=== PATIENT | female | born 1950 | race Caucasian/White ===

== ENCOUNTER 2019-01-05 07:15 | Inpatient (IN) | payer MEDICARE ==
[~2019-01-05 07:15] MED LIST: cefOXitin 2 GM Vial ONE
[2019-01-05] MEDS ORDERED: Rocuronium 50 MG/5 ML Vial ONE ×2 (09:02→11:34)
[2019-01-05] MEDS ORDERED: fentaNYL 250 MCG/5 ML SDV ONE ×2 (09:02→11:34)
[2019-01-05] MEDS ORDERED: Neostigmine Methylsulfate 1 MG/ML 5 ML Syringe ONE (09:02)
[2019-01-05] MEDS ORDERED: Propofol 200 MG/20 ML SDV ONE (09:02)
[2019-01-05] MEDS ORDERED: Ondansetron 4 MG/2 ML SDV ONE (09:02)
[2019-01-05] MEDS ORDERED: Succinylcholine 200 MG/10 ML MDV ONE (09:02)
[2019-01-05] MEDS ORDERED: Glycopyrrolate 0.2 MG/ML 5 ML MDV ONE (09:02)
[2019-01-05] MEDS ORDERED: Dexamethasone 4 MG/ML SDV ONE (09:02)
[2019-01-05] MEDS ORDERED: Lactated Ringers 1,000 ML ONE (09:05)
[2019-01-05] MEDS ORDERED: Gabapentin 300 MG Cap PO ONE (09:30)
[2019-01-05] MEDS ORDERED: Scopolamine 1.5 MG Transdermal Patch TRDERM SCH (09:30)
[2019-01-05] MEDS ORDERED: Acetaminophen 500 MG Tab PO ONE (09:30)
[2019-01-05] MEDS ORDERED: Celecoxib 200 MG Cap PO ONE (09:30)
[2019-01-05] MEDS ORDERED: Dextrose 5%-Lactated Ringers 1,000 ML IV SCH ×2 (10:00→15:45)
[2019-01-05] MEDS ORDERED: cefOXitin 2 GM in Sodium Chloride 0.9% 50 ML IV ONE (11:00)
[2019-01-05] MEDS ORDERED: Lidocaine 2% 100 MG/5 ML Syringe IVPUSH SCH (11:15)
[2019-01-05] MEDS ORDERED: Ketamine 50 MG in Sodium Chloride 0.9% 49.5 ML IV SCH (11:15)
[2019-01-05] MEDS ORDERED: Ketamine 500 MG/5 ML MDV IV SCH (11:15)
[2019-01-05] MEDS ORDERED: Meropenem 500 MG SDV ONE (13:12)
[2019-01-05] MEDS ORDERED: hydrOXYzine HCl 100 MG/2 ML SDV IM ONE (13:59)
[2019-01-05] MEDS ORDERED: HYDROmorphone 0.5 MG/0.5 ML Syringe IVPUSH PRN (14:40)
[2019-01-05] MEDS: Lidocaine 0.4%/D5W 2 GM/500 ML BAG IV SCH (14:52)
[2019-01-05] MEDS: HYDROmorphone 1 MG/ML Syringe IV PRN ×2 (14:52→19:31)
[2019-01-05] MEDS ORDERED: Metoclopramide 10 MG/2 ML SDV IVPUSH PRN (15:44)
[2019-01-05] MEDS ORDERED: Labetalol 20 MG/4 ML Syringe IVPUSH PRN (15:44)
[2019-01-05] MEDS ORDERED: Albuterol/Ipratropium 3.0-0.5 MG/3 ML Neb Soln INH PRN (15:44)
[2019-01-05] MEDS ORDERED: hydrOXYzine HCl 100 MG/2 ML SDV IM PRN (15:44)
[2019-01-05] MEDS ORDERED: diphenhydrAMINE 50 MG/ML SDV IVPUSH PRN (15:44)
[2019-01-05] MEDS ORDERED: 50% Dextrose in Water 50 ML Syringe IVPUSH PRN (15:44)
[2019-01-05] MEDS ORDERED: Glucagon,Human Recombinant 1 MG Vial IM PRN (15:44)
[2019-01-05] MEDS ORDERED: Insulin Lispro 100 Unit/ML 3 ML KwikPen SUBCUT PRN (15:44)
[2019-01-05] MEDS ORDERED: Ondansetron 4 MG/2 ML SDV IVPUSH PRN (15:44)
[2019-01-05] MEDS: Dextrose 5%-Lactated Ringers 1,000 ML IV SCH (16:05)
[2019-01-05] MEDS: Lactated Ringers 1,000 ML IV SCH (16:06)
[2019-01-05] MEDS: cefOXitin 2 GM in Sodium Chloride 0.9% 50 ML IV SCH ×2 (16:45→22:06)
[2019-01-05] MEDS: Acetaminophen Soln 650 MG/20.3 ML UD Cup PO SCH ×2 (16:45→22:06)
[2019-01-05] MEDS: MVI, Adult with Vitamin K 10 ML, Thiamine 200 MG, Chromium/Copper/Mang/Selen/Zn 1 ML in... IV SCH ×4 (16:45)
[2019-01-05] MEDS: Diltiazem IR 30 MG Tab PO SCH ×2 (16:45→22:05)
[2019-01-05] MEDS: Pantoprazole 40 MG Vial IVPUSH SCH (16:46)
[2019-01-05] MEDS: Heparin Sodium 5,000 Units/ML Vial SUBCUT SCH (19:24)
[2019-01-05] MEDS: Gabapentin 250 MG/5 ML Solution ML 470 ML Bottle PO SCH (20:55)
[2019-01-05] MEDS ORDERED: Albuterol/Ipratropium 3.0-0.5 MG/3 ML Neb Soln INH SCH (21:00)
[2019-01-06] MEDS: HYDROmorphone 1 MG/ML Syringe IV PRN ×2 (00:23→04:14)
[2019-01-06] MEDS: Lactated Ringers 1,000 ML IV SCH ×2 (02:34→13:12)
[2019-01-06] MEDS ORDERED: Iopamidol 612 MG/ML 50 ML SDV PO ONE (03:50)
[2019-01-06] MEDS: Diltiazem IR 30 MG Tab PO SCH ×2 (04:13→09:41)
[2019-01-06] MEDS: cefOXitin 2 GM in Sodium Chloride 0.9% 50 ML IV SCH ×5 (05:27→22:26)
[2019-01-06] MEDS: Acetaminophen Soln 650 MG/20.3 ML UD Cup PO SCH ×5 (05:28→22:26)
[2019-01-06] MEDS: Dextrose 5%-Lactated Ringers 1,000 ML IV SCH (05:29)
--- NOTE | 2019-01-06 06:08 | CRLCR ---
Indication: Evaluate Noah-en-Y gastric bypass. Technique: Abdomen 3 view. 50 cc of Isovue-300 and oral contrast were administered. Comparison: None. Findings: Postoperative changes Noah-en-Y gastric bypass. Enteric contrast is seen within the gastric pouch and proximal Noah limb on the 1st two images which are immediately following contrast ingestion. The contrast is seen to pass into mid and distal loops of normal caliber small bowel in the left abdomen on the 3rd image which is at 17 minutes delayed. No evidence of contrast leak. Surgical drain left upper quadrant. Surgical zachary projected over the right lower abdomen. Impression: Postoperative changes Noah-en-Y gastric bypass. No evidence of contrast leak. Dictated by Cristine Martinez MD @ Jan 06 2019 6:02AM Signed by Dr. Cristine Martinez @ Jan 06 2019 6:06AM
[2019-01-06] MEDS ORDERED: Ondansetron 4 MG Tab.DIS PO PRN (07:49)
[2019-01-06] MEDS: Celecoxib 200 MG Cap PO SCH (07:53)
[2019-01-06] MEDS: Heparin Sodium 5,000 Units/ML Vial SUBCUT SCH ×2 (08:00→21:45)
[2019-01-06] MEDS ORDERED: metFORMIN 500 MG Tab PO SCH (08:00)
[2019-01-06] MEDS: Gabapentin 250 MG/5 ML Solution ML 470 ML Bottle PO SCH ×3 (08:59→21:45)
[2019-01-06] MEDS ORDERED: Lisinopril 10 MG Tab PO SCH (09:00)
[2019-01-06] MEDS: SCOPOLAMINE PATCH CHECK TOP SCH (09:01)
[2019-01-06] MEDS: HYDROmorphone 2 MG Tab PO PRN ×2 (09:32→17:01)
[2019-01-06] MEDS: Hydrochlorothiazide 12.5 MG Cap PO SCH (09:41)
--- NOTE | 2019-01-06 11:19 | PN ---
DATE OF SERVICE: 01/06/2019 SUBJECTIVE: Michelle is postop day #1. Her upper GI this morning was normal. She has been up ambulating. Pain has been controlled. REVIEW OF SYSTEMS: Remainder of review of systems negative for any pertinent positives and negatives. OBJECTIVE: GENERAL: Michelle Rodriguez is a 68-year-old female. VITAL SIGNS: TPR is 97.2, 71, 17, blood pressure 104/70. HEENT: Negative. NECK: Supple. HEART: Regular rate and rhythm. LUNGS: Clear. ABDOMEN: Dressing dry and intact. Abdominal binder is on. ANA LUISA drain is intact and is putting out a pink serosanguineous drainage. EXTREMITIES: Without peripheral edema. ASSESSMENT: 1. Diagnostic laparoscopy with laparoscopic sleeve gastrectomy. 2. Liver biopsy. 3. Limited laparotomy with strictureplasty of transverse colon. POSTOPERATIVE DIAGNOSES: 1. Morbid obesity. 2. Hepatomegaly. 3. Extensive intraabdominal adhesions with stricture at the transverse colon noted after takedown of adhesions. Date of surgery, 01/05/2019. Surgeon, Gaurav Ozuna MD. PLAN: 1. Discontinue D5LR. 2. Lactated Ringer's 100 mL per hour. 3. Step-2 gastric bypass diet without cereal. 4. Dressing off, may shower. 5. Lisinopril 10/12.5 mg p.o. daily. 6. Discontinue metformin. 7. Communication order, 3 med cups per hour and record at bedside. 8. Zofran 4 mg ODT q.4 hours p.r.n. nausea. 9. Good pulmonary toilet. 10.We will evaluate p.r.n. or in a.m. Cristine Dia PA-C /[id number]
--- NOTE | 2019-01-06 12:24 | PCM.CONS ---
H&P History of Present Illness - General Date of Service: 01/06/19 Admit Problem/Dx: Admission Diagnosis/Problem Admission Diagnosis/Problem Gastrectomy Source of Information: Patient, Provider, RN Notes Reviewed History Limitations: Reports: No Limitations - History of Present Illness Initial Comments - Free Text/Narative: Ms. Rodriguez is a 68-year-old woman who I been asked to see by Dr. Ozuna for further suggestions concerning evaluation and management of paroxysmal atrial fibrillation. She was admitted yesterday for bariatric surgery with gastric sleeve placement. During the postoperative period was noted to have episodes of increased heart rate. On telemetry monitoring it appears that she has paroxysmal episodes of atrial fibrillation. She was started on diltiazem 30 mg every 6 hours. Since then rates have been under better control but she continues to experience intermittent episodes of the atrial fibrillation. She denies any prior history of significant cardiac disease and was feeling well over the past week prior to surgery. Upper Abdomen Pain Score (Numeric/FACES): 4 - Related Data Allergies/Adverse Reactions: Allergies Allergy/AdvReac Type Severity Reaction Status Date / Time laundry soap Allergy Rash Uncoded 01/05/19 09:56 Home Medications: Home Meds Cholecalciferol (Vitamin D3) [Vitamin D] 5,000 units PO DAILY 01/01/19 [History] Cyanocobalamin (Vitamin B-12) [Vitamin B-12] 1,000 mcg PO DAILY 01/01/19 [ History] Hydrochlorothiazide/Lisinopril [Lisinopril/HCTZ 10-12.5 MG] 1 tab PO DAILY 01/01 [History] Multivitamin W/Iron, Minerals [Flintstones Complete] 1 tab PO DAILY 01/01/19 [ History] Vitamin B Complex [B Complex] 1 tab PO DAILY 01/01/19 [History] metFORMIN HCl [Metformin HCl ER] 500 mg PO DAILY 01/05/19 [History] Past Medical History HEENT History: Reports: Other (See Below) Other HEENT History: wears glasses Cardiovascular History: Reports: Hypertension Respiratory History: Reports: Sleep Apnea Gastrointestinal History: Reports: Chronic Constipation Genitourinary History: Reports: Renal Calculus, UTI, Recurrent, Other (See Below ) Other Genitourinary History: yeast infections [employer]ETING [employer]ICATION [employer]GER History: Reports: Musculoskeletal History: Reports: Other (See Below) Other Musculoskeletal History: chronic knee pain - "knocked knee" Endocrine/Metabolic History: Reports: Diabetes, Type II, Obesity/BMI 30+ Hematologic History: Reports: Other (See Below) Other Hematologic History: vitamin d deficiency - Infectious Disease History Infectious Disease History: Reports: Chicken Pox - Past Surgical History GI Surgical History: Reports: Appendectomy, Cholecystectomy Female Surgical History: Reports: Hysterectomy, Salpingo-Oophorectomy Social & Family History - Tobacco Use Smoking Status *Q: Former Smoker Used Tobacco, but Quit: Yes Month/Year Tobacco Last Used: 5 yrs ago - Caffeine Use Caffeine Use: Reports: Coffee - Recreational Drug Use Recreational Drug Use: No H&P Review of Systems - Review of Systems: Review Of Systems: See Below General: Reports: No Symptoms Pulmonary: Reports: No Symptoms Cardiovascular: Reports: No Symptoms Gastrointestinal: Reports: Abdominal Pain. Denies: Constipation, Diarrhea, Hematemesis, Hematochezia, Melena Musculoskeletal: Reports: No Symptoms Exam - Exam Exam: See Below - Vital Signs Vital Signs: Last Vital Signs Temp 97.3 F 01/06/19 09:37 Pulse 63 01/06/19 09:37 Resp 13 01/06/19 09:37 BP 108/57 L 01/06/19 09:37 Pulse Ox 95 01/06/19 09:37 Weight: 302 lb 9.6 oz - Exam Quality Assessment: DVT Prophylaxis General: Alert, Oriented, Cooperative, Mild Distress Neck: Supple, Trachea Midline, +2 Carotid Pulse wo Bruit Lungs: Clear to Auscultation, Normal Respiratory Effort Cardiovascular: Regular Rate, Regular Rhythm, Normal S1, Normal S2. No: Systolic Murmur, Diastolic Murmur GI/Abdominal Exam: Soft, No Organomegaly, Tender. No: Distended, Guarding, Rigid, Rebound Extremities: Non-Tender, No Pedal Edema - Patient Data Lab Results Last 24 hrs: Laboratory Results - last 24 hr 01/06/19 01/06/19 Range/Units 04:02 04:02 WBC 13.9 H (4.5-11.0) K/uL RBC 4.49 (3.30-5.50) M/uL Hgb 13.1 (12.0-15.0) g/dL Hct 40.8 (36.0-48.0) % MCV 91 (80-98) fL MCH 29 (27-31) pg MCHC 32 (32-36) % Plt Count 259 (150-400) K/uL Neut % (Auto) 79 H (36-66) % Lymph % (Auto) 15 L (24-44) % Pine % (Auto) 6 (2-6) % Eos % (Auto) 0 L (2-4) % Baso % (Auto) 0 (0-1) % Sodium 140 (140-148) mmol/L Potassium 4.2 (3.6-5.2) mmol/L Chloride 105 (100-108) mmol/L Carbon Dioxide 25 (21-32) mmol/L Anion Gap 9.6 (5.0-14.0) mmol/L BUN 11 (7-18) mg/dL Creatinine 0.7 (0.6-1.0) mg/dL Est Cr Clr Drug Dosing 66.83 mL/min Estimated GFR (MDRD) > 60 (>60) Glucose 151 H (74-106) mg/dL Calcium 8.5 (8.5-10.1) mg/dL Phosphorus 3.7 (2.5-4.9) mg/dL Magnesium 1.9 (1.8-2.4) mg/dL Total Bilirubin 0.5 (0.2-1.0) mg/dL AST 33 (15-37) U/L ALT 36 (12-78) U/L Alkaline Phosphatase 56 (46-116) U/L NT-Pro-B Natriuret Pep 75 (5-125) pg/mL Total Protein 6.9 (6.4-8.2) g/dL Albumin 3.3 L (3.4-5.0) g/dL Globulin 3.6 H (2.3-3.5) g/dL Albumin/Globulin Ratio 0.9 L (1.2-2.2) Result Diagrams: 01/06/19 04:02 01/06/19 04:02 Consult PN Assessment/Plan Procedures: Procedures BLOOD TYPING SEROLOGIC ABO (07/09/18) BLOOD TYPING SEROLOGIC RH(D) (07/09/18) RBC ANTIBODY SCREEN (07/09/18) Problem List Initiated/Reviewed/Updated: Yes My Orders Last 24 Hours: My Active Orders 01/06/19 12:30 Diltiazem [Cardizem CD] 120 mg PO DAILY 01/07/19 08:00 Echo Comp wo Cont [US] Urgent Plan: ASSESSMENT AND RECOMMENDATIONS PAROXYSMAL ATRIAL FIBRILLATION-no prior history of significant cardiac dysrhythmias or cardiac disease. She is been noted to have frequent very short- lived episodes of increased heart rate and underlying rhythm consistent with atrial fibrillation. Calculated [id number] score of 4 -Transition from short acting diltiazem every 6 hours to diltiazem CD 120 mg daily -Discontinue lisinopril -Echocardiogram in a.m. -She should be considered for anticoagulation when it is deemed safe from a surgical standpoint STATUS POST GASTRIC SLEEVE Requesting Provider: SASHA Date Consult Requested: 01/05/19 Reason for Consult: Paroxysmal atrial fibrillation Patient History Reviewed: Yes
[2019-01-06] MEDS: Diltiazem 120 MG Cap.CD PO SCH (13:08)
[2019-01-06] MEDS: Lidocaine 0.4%/D5W 2 GM/500 ML BAG IV SCH (13:08)
[2019-01-06] MEDS: Pantoprazole 40 MG Vial IVPUSH SCH (16:52)
[2019-01-06] MEDS: MVI, Adult with Vitamin K 10 ML, Thiamine 200 MG, Chromium/Copper/Mang/Selen/Zn 1 ML in... IV SCH ×4 (16:59)
[2019-01-07] MEDS: HYDROmorphone 2 MG Tab PO PRN ×4 (00:52→20:18)
[2019-01-07] MEDS: cefOXitin 2 GM in Sodium Chloride 0.9% 50 ML IV SCH (04:52)
[2019-01-07] MEDS: Acetaminophen Soln 650 MG/20.3 ML UD Cup PO SCH ×4 (04:53→22:39)
[2019-01-07] MEDS: Diltiazem 120 MG Cap.CD PO SCH (08:44)
[2019-01-07] MEDS: Hydrochlorothiazide 12.5 MG Cap PO SCH (08:44)
[2019-01-07] MEDS: Heparin Sodium 5,000 Units/ML Vial SUBCUT SCH ×2 (08:44→20:19)
[2019-01-07] MEDS: Celecoxib 200 MG Cap PO SCH (08:44)
[2019-01-07] MEDS: SCOPOLAMINE PATCH CHECK TOP SCH (08:45)
[2019-01-07] MEDS: Gabapentin 250 MG/5 ML Solution ML 470 ML Bottle PO SCH ×3 (08:45→20:19)
[2019-01-07] MEDS ORDERED: Cyanocobalamin (Vitamin B12) 1,000 MCG/ML SDV IM ONE (09:00)
--- NOTE | 2019-01-07 10:05 | PN ---
DATE OF SERVICE: 01/07/2019 SUBJECTIVE: Michelle states her pain is controlled. Oral intake 850. Urine output 3300. ANA LUISA drain put out 20 mL of a light pink drainage. Blood sugar has been 104 and this morning it was 94. She did require 3 L of oxygen put in to her CPAP. She walked 4 times yesterday. REVIEW OF SYSTEMS: Remainder of review of systems negative for any pertinent positives and negatives. OBJECTIVE: GENERAL: Michelle Rodriguez is a 68-year-old female. VITAL SIGNS: TPR is 96.7, 63, 16. Blood pressure 102/58. HEENT: Negative. NECK: Supple. HEART: Regular rate and rhythm. LUNGS: Clear. ABDOMEN: Dressings dry and intact. Abdominal binder is on. ANA LUISA drain intact. EXTREMITIES: Without peripheral edema. ASSESSMENT: 1. Diagnostic laparoscopy with laparoscopic sleeve gastrectomy. 2. Liver biopsy. 3. Limited laparotomy with strictureplasty of transverse colon. POSTOPERATIVE DIAGNOSES: 1. Morbid obesity. 2. Hepatomegaly. 3. Extensive intraabdominal adhesions with stricture at the transverse colon noted after takedown of adhesions. Date of surgery, 01/05/2019. Surgeon, Gaurav Ozuna MD. PLAN: 1. Acapella, use 10 times every hour while awake. 2. Walk at least 6 times daily. 3. We will evaluate p.r.n. or in a.m. Cristine Dia PA-C /[id number]
--- NOTE | 2019-01-07 13:19 | PCM.CONSN ---
- General Info Date of Service: 01/07/19 Subjective Update: Ms. Rodriguez has been stable over the last 24 hours, heart rate is been under better control and she denies chest pain or palpitations. Functional Status: Reports: Tolerating Diet, Ambulating, Urinating - Review of Systems Pulmonary: Reports: No Symptoms Cardiovascular: Reports: No Symptoms Gastrointestinal: Reports: Abdominal Pain. Denies: Difficulty Swallowing, Nausea, Vomiting - Patient Data Vitals - Most Recent: Last Vital Signs Temp 98.2 F 01/07/19 11:39 Pulse 74 01/07/19 11:39 Resp 16 01/07/19 11:39 BP 106/82 01/07/19 11:39 Pulse Ox 89 L 01/07/19 11:39 Weight - Most Recent: 302 lb I&O - Last 24 Hours: Intake & Output 01/06/19 01/07/19 01/07/19 22:59 06:59 14:59 Intake Total 1561 250 Output Total 1700 1000 Balance -139 -750 Med Orders - Current: Current Medications Acetaminophen (Tylenol) 650 mg PO Q6H [facility] Last Admin: 01/07/19 11:24 Dose: 650 mg Albuterol/Ipratropium (Duoneb 3.0-0.5 Mg/3 Ml) 3 ml INH ASDIRECTED PRN PRN Reason: BREATHING Celecoxib (Celebrex) 200 mg PO DAILY@0800 [facility] Last Admin: 01/07/19 08:44 Dose: 200 mg Dextrose/Water (Dextrose 50% In Water) 50 ml IVPUSH ONETIME PRN PRN Reason: ACCUCHECK LESS THAN 70 Diltiazem HCl (Cardizem Cd) 120 mg PO DAILY [facility] Last Admin: 01/07/19 08:44 Dose: 120 mg Diphenhydramine HCl (Benadryl) 50 mg IVPUSH Q4H PRN PRN Reason: ITCHING Gabapentin (Neurontin) 300 mg PO TID [facility] Last Admin: 01/07/19 08:45 Dose: 300 mg Glucagon (Glucagen) 1 mg IM ONETIME PRN PRN Reason: ACCUCHECK LESS THAN 70 Heparin Sodium (Porcine) (Heparin Sodium) 5,000 units SUBCUT Q12H [facility] Last Admin: 01/07/19 08:44 Dose: 5,000 units Hydrochlorothiazide (Hydrochlorothiazide) 12.5 mg PO DAILY [facility] Last Admin: 01/07/19 08:44 Dose: 12.5 mg Hydromorphone HCl (Dilaudid) 2 - 4 mg PO Q4H PRN PRN Reason: Pain Last Admin: 01/07/19 12:28 Dose: 4 mg Hydroxyzine HCl (Vistaril) 100 mg IM Q4H PRN PRN Reason: pain Last Admin: 01/07/19 09:42 Dose: 100 mg Multivitamins/Minerals 10 ml/Thiamine HCl 200 mg/ Chromium/Copper/Manganese/ Seleni/Zn 1 ml/ Lactated Ringer's 1,013 mls @ 100 mls/hr IV DAILY@1600 [facility] Last Admin: 01/06/19 16:59 Dose: 100 mls/hr Lactated Ringer's (Ringers, Lactated) 1,000 mls @ 100 mls/hr IV ASDIRECTED [facility] Last Admin: 01/06/19 13:12 Dose: 100 mls/hr Insulin Human Lispro (Humalog) 0 unit SUBCUT Q6H PRN; Protocol PRN Reason: CORRECTIONAL DOSING Labetalol HCl (Normodyne) 5 mg IVPUSH Q5M PRN PRN Reason: SBP over 160 OR DBP over 95 Metoclopramide HCl (Reglan) 10 mg IVPUSH Q6H PRN PRN Reason: NAUSEA NOT CONTROL BY ZOFRAN Scopolamine Patch (Check) 1 each TOP DAILY [facility] Stop: 01/07/19 15:45 Last Admin: 01/07/19 08:45 Dose: Not Given Ondansetron HCl (Zofran) 4 mg IVPUSH Q4H PRN PRN Reason: Nausea/Vomiting Ondansetron HCl (Zofran Odt) 4 mg PO Q4H PRN PRN Reason: Nausea/Vomiting Pantoprazole Sodium (Protonix Granules) 40 mg PO Q24H [facility] Discontinued Medications Acetaminophen (Tylenol Extra Strength) 1,000 mg PO ONETIME ONE Stop: 01/05/19 09:31 Last Admin: 01/05/19 09:53 Dose: 1,000 mg Cefoxitin Sodium (Mefoxin) Confirm Administered Dose 2 gm .ROUTE .STK-MED ONE Stop: 01/05/19 06:59 Last Admin: 01/05/19 11:46 Dose: 2 gm Celecoxib (Celebrex) 200 mg PO ONETIME ONE Stop: 01/05/19 09:31 Last Admin: 01/05/19 09:53 Dose: 200 mg Ropivacaine 60 ml/Dexamethasone 8 mg/Epinephrine HCl 0.4 mg/ Sodium Chloride 17.6 ml 0 ml NERVRT ASDIRECTED [facility] Last Admin: 01/05/19 11:26 Dose: 80 syringe Cyanocobalamin (Vitamin B12) 1,000 mcg IM ONETIME ONE Stop: 01/07/19 09:01 Last Admin: 01/07/19 08:46 Dose: 1,000 mcg Dexamethasone (Dexamethasone) Confirm Administered Dose 4 mg .ROUTE .STK-MED ONE Stop: 01/05/19 09:03 Diltiazem HCl (Cardizem) 30 mg PO Q6HR [facility] Last Admin: 01/06/19 09:41 Dose: 30 mg Fentanyl (Sublimaze) Confirm Administered Dose 250 mcg .ROUTE .STK-MED ONE Stop: 01/05/19 09:03 Fentanyl (Sublimaze) Confirm Administered Dose 250 mcg .ROUTE .STK-MED ONE Stop: 01/05/19 11:35 Gabapentin (Neurontin) 300 mg PO ONETIME ONE Stop: 01/05/19 09:31 Last Admin: 01/05/19 09:53 Dose: 300 mg Glycopyrrolate (Robinul) Confirm Administered Dose 1 mg .ROUTE .STK-MED ONE Stop: 01/05/19 09:03 Hydromorphone HCl (Dilaudid) 0.5 mg IVPUSH Q2H PRN PRN Reason: MODERATE PAIN Hydromorphone HCl (Dilaudid) 1 mg IV Q2H PRN PRN Reason: SEVERE PAIN Last Admin: 01/06/19 04:14 Dose: 1 mg Hydroxyzine HCl (Vistaril) 100 mg IM ONETIME ONE Stop: 01/05/19 14:00 Last Admin: 01/05/19 14:10 Dose: 100 mg Ketamine HCl 50 mg/ Sodium (Chloride) 50 mls @ 15.72 mls/hr IV ASDIRECTED [facility] Lidocaine HCl/Dextrose (Lidocaine 2 Gm/D5w 500 Ml) 2 gm in 500 mls @ 15 mls/hr IV .Q24H [facility] Stop: 01/06/19 14:00 Last Admin: 01/06/19 13:08 Dose: Not Given Dextrose/Lactated Ringer's (Dextrose 5%-Lactated Ringers) 1,000 mls @ 100 mls/ hr IV ASDIRECTED [facility] Last Admin: 01/05/19 10:53 Dose: 100 mls/hr Cefoxitin Sodium 2 gm/ Sodium (Chloride) 50 mls @ 100 mls/hr IV ONETIME ONE Stop: 01/05/19 11:29 Last Admin: 01/05/19 10:57 Dose: 100 mls/hr Lactated Ringer's (Ringers, Lactated) Confirm Administered Dose 1,000 mls @ as directed .ROUTE .STK-MED ONE Stop: 01/05/19 09:06 Insulin Human Regular 100 unit (/ Sodium Chloride) 100 mls @ 0 mls/hr IV TITRATE BONNIE; Protocol Dextrose/Lactated Ringer's (Dextrose 5%-Lactated Ringers) 1,000 mls @ 75 mls/ hr IV ASDIRECTED [facility] Last Admin: 01/06/19 05:29 Dose: 75 mls/hr Lactated Ringer's (Ringers, Lactated) 1,000 mls @ 100 mls/hr IV ASDIRECTED [facility] Last Admin: 01/06/19 02:34 Dose: 100 mls/hr Cefoxitin Sodium 2 gm/ Sodium (Chloride) 50 mls @ 100 mls/hr IV Q6H [facility] Last Admin: 01/07/19 04:52 Dose: 100 mls/hr Iopamidol (Isovue-300 (61%)) 50 ml PO ASDIRECTED ONE Stop: 01/06/19 03:51 Last Admin: 01/06/19 04:54 Dose: 50 ml Ketamine HCl (Ketalar) 26 mg IV ASDIRECTED BONN[facility] Lidocaine HCl (Xylocaine 2%) 100 mg IVPUSH ASDIRECTED [facility] Lisinopril (Prinivil) 10 mg PO DAILY [facility] Last Admin: 01/06/19 10:59 Dose: Not Given Meropenem (Merrem) Confirm Administered Dose 500 mg .ROUTE .STK-MED ONE Stop: 01/05/19 13:13 Metformin HCl (Glucophage) 500 mg PO DAILY@0800 [facility] Miscellaneous Information (Remove Patch) 1 ea TRDERM ONETIME ONE Stop: 01/07/19 10:01 Last Admin: 01/07/19 09:50 Dose: Not Given Neostigmine Methylsulfate (Neostigmine) Confirm Administered Dose 5 mg .ROUTE .STK-MED ONE Stop: 01/05/19 09:03 Ondansetron HCl (Zofran) Confirm Administered Dose 4 mg .ROUTE .STK-MED ONE Stop: 01/05/19 09:03 Pantoprazole Sodium (Protonix Iv) 40 mg IVPUSH Q24H [facility] Last Admin: 01/06/19 16:52 Dose: 40 mg Propofol (Diprivan 20 Ml) Confirm Administered Dose 200 mg .ROUTE .STK-MED ONE Stop: 01/05/19 09:03 Rocuronium [place] (Zemuron) Confirm Administered Dose 50 mg .ROUTE .STK-MED ONE Stop: 01/05/19 09:03 Rocuronium [place] (Zemuron) Confirm Administered Dose 50 mg .ROUTE .STK-MED ONE Stop: 01/05/19 11:35 Scopolamine (Transderm-Scop) 1.5 mg TRDERM Q72H [facility] Stop: 01/07/19 10:00 Last Admin: 01/05/19 09:53 Dose: 1.5 mg Succinylcholine Chloride (Quelicin) Confirm Administered Dose 200 mg .ROUTE .STK -MED ONE Stop: 01/05/19 09:03 - Exam Quality Assessment: DVT Prophylaxis General: Alert, Oriented, Cooperative, Mild Distress Lungs: Clear to Auscultation, Normal Respiratory Effort Cardiovascular: Regular Rate, Regular Rhythm, No Murmurs GI/Abdominal Exam: Soft, No Organomegaly, Tender. No: Distended, Guarding, Rigid, Rebound Consult PN Assessment/Plan Procedures: Procedures BLOOD TYPING SEROLOGIC ABO (07/09/18) BLOOD TYPING SEROLOGIC RH(D) (07/09/18) RBC ANTIBODY SCREEN (07/09/18) Problem List Initiated/Reviewed/Updated: Yes My Orders Last 24 Hours: My Active Orders 01/06/19 12:30 Diltiazem [Cardizem CD] 120 mg PO DAILY 01/07/19 08:00 Echo Comp wo Cont [US] Urgent Plan: ASSESSMENT AND RECOMMENDATIONS PAROXYSMAL ATRIAL FIBRILLATION-no prior history of significant cardiac dysrhythmias or cardiac disease. He did much better controlled over the last 24 hours on current therapy with diltiazem Calculated [id number] score of 4. Echocardiogram showed preserved left ventricular function and no evidence of significant atrial enlargement.. -Discharge to home on diltiazem CD 120 mg daily -Discontinue lisinopril -Outpatient follow-up with cardiology -She should be considered for anticoagulation when it is deemed safe from a surgical standpoint STATUS POST GASTRIC SLEEVE
[2019-01-07] MEDS: MVI, Adult with Vitamin K 10 ML, Thiamine 200 MG, Chromium/Copper/Mang/Selen/Zn 1 ML in... IV SCH ×4 (15:05)
[2019-01-07] MEDS: Pantoprazole 40 MG Delayed-Release Granules 1 Packet PO SCH (16:12)
[2019-01-07] MEDS ORDERED: Acetaminophen/Caffeine 500-65 MG Tab PO PRN (16:43)
[2019-01-08] MEDS: Lactated Ringers 1,000 ML IV SCH (01:10)
[2019-01-08] MEDS: Acetaminophen Soln 650 MG/20.3 ML UD Cup PO SCH ×4 (04:06→22:04)
[2019-01-08] MEDS: HYDROmorphone 2 MG Tab PO PRN ×3 (04:06→22:01)
[2019-01-08] MEDS: Gabapentin 250 MG/5 ML Solution ML 470 ML Bottle PO SCH ×3 (08:09→22:00)
[2019-01-08] MEDS: Hydrochlorothiazide 12.5 MG Cap PO SCH (08:10)
[2019-01-08] MEDS: Celecoxib 200 MG Cap PO SCH (08:10)
[2019-01-08] MEDS: Diltiazem 120 MG Cap.CD PO SCH (08:10)
[2019-01-08] MEDS: Heparin Sodium 5,000 Units/ML Vial SUBCUT SCH ×2 (08:10→20:15)
--- NOTE | 2019-01-08 09:26 | PN ---
DATE OF SERVICE: 01/08/2019 SUBJECTIVE: Michelle is postoperative day 3. She had a bowel movement. Oral intake 1020. Urine output 2550. ANA LUISA drain put out 75 mL of a light pink drainage. The pain has been controlled. Oxygen stayed at 94% without O2 when she was using her CPAP. Her main concern prior to going home is that she has difficulty with her open incision for the bowel stricture, she is unable to wipe herself after toileting. REVIEW OF SYSTEMS: Remainder of review of systems negative for any pertinent positives and negatives. OBJECTIVE: GENERAL: Michelle Rodriguez is a 68-year-old female. VITAL SIGNS: TPR is 97, 68, 16. Blood pressure is 113/57. HEENT: Negative. NECK: Supple. HEART: Regular rate and rhythm. LUNGS: Clear. ABDOMEN: Dressings dry and intact. Abdominal binder is on. ANA LUISA drain intact. EXTREMITIES: Without peripheral edema. ASSESSMENT: 1. Diagnostic laparoscopy with laparoscopic sleeve gastrectomy. 2. Liver biopsy. 3. Limited laparotomy with strictureplasty of transverse colon for: a. Morbid obesity. b. Hepatomegaly. c. Extensive intraabdominal adhesions with stricture at the transverse colon after takedown of adhesions. Date of surgery, 01/05/2019. Surgeon, Gaurav Ozuna MD. PLAN: 1. Consult with Occupational Therapy to aid in toileting. 2. Discontinue Aquacel. 3. Discontinue ANA LUISA drain. 4. Saline lock IV. 5. Colace 100 mg b.i.d. 6. Good pulmonary toilet. 7. We will evaluate p.r.n. or in a.m. 8. Plan discharge in a.m. Cristine Dia PA-C /[id number]
[2019-01-08] MEDS: Docusate Sodium 100 MG Cap PO SCH ×2 (10:45→22:03)
[2019-01-08] MEDS: Pantoprazole 40 MG Delayed-Release Granules 1 Packet PO SCH (16:12)
[2019-01-09] MEDS: HYDROmorphone 2 MG Tab PO PRN ×3 (06:03→13:49)
[2019-01-09] MEDS: Acetaminophen Soln 650 MG/20.3 ML UD Cup PO SCH ×2 (06:03→10:17)
[2019-01-09] MEDS: Hydrochlorothiazide 12.5 MG Cap PO SCH (09:01)
[2019-01-09] MEDS: Heparin Sodium 5,000 Units/ML Vial SUBCUT SCH (09:01)
[2019-01-09] MEDS: Celecoxib 200 MG Cap PO SCH (09:01)
[2019-01-09] MEDS: Diltiazem 120 MG Cap.CD PO SCH (09:02)
[2019-01-09] MEDS: Docusate Sodium 100 MG Cap PO SCH (09:02)
[2019-01-09] MEDS: Gabapentin 250 MG/5 ML Solution ML 470 ML Bottle PO SCH (09:18)
--- NOTE | 2019-01-11 08:18 | DISCH ---
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 DISCHARGE DIAGNOSIS: 1. Diagnostic laparoscopy with laparoscopic sleeve gastrectomy. 2. Liver biopsy. 3. Limited laparotomy with strictureplasty of transverse colon for: a. Morbid obesity. b. Hepatomegaly. c. Extensive intraabdominal adhesions with stricture at the transverse colon after takedown of adhesions. Date of surgery, 01/05/2019. Surgeon, Gaurav Ozuna MD. HISTORY: After preoperative evaluation and discussion of possible risks and possible complications, Michelle wished to proceed with surgical procedure. HOSPITAL COURSE: Michelle had her surgery on 01/05/2019. She had no operative complications. On the first postoperative day, she did have some paroxysmal atrial fibrillation and was seen by the hospitalist and was monitored and started on short-acting diltiazem every 6 hours. She had an echocardiogram in the morning. She had no further episodes throughout her hospitalization. She was started on step 2 gastric bypass diet with no cereal. The pain was managed with oral pain medication. She was up, ambulating. She did have an occupational therapy consult to help with activities of daily living. Her vital signs were stable. Oral intake adequate. She was having bowel movements and was able to be discharged to home on 01/09/2019. PHYSICAL EXAMINATION: GENERAL: Michelle Rodriguez is a 68-year-old female, alert and orientated. VITAL SIGNS: TPR 98.5, 92, 16. Blood pressure 122/64. HEENT: Negative. NECK: Supple. HEART: Regular rate and rhythm. LUNGS: Clear. ABDOMEN: Incisions look good. Abdominal binder is on. ANA LUISA drain was removed yesterday. Sutures intact. EXTREMITIES: Without peripheral edema. DISPOSITION: Discharged to home. CONDITION: Stable and improving. FOLLOWUP: Followup appointment with Cristine Dia PA-C, on 01/19/2019 at 10:15 a.m. Cardiac consult with Dr. Ellis on January 12 at 9:30 a.m. in [place]. HOME MEDICATIONS: Dilaudid 2 mg 1 to 2 every 4 hours p.r.n. pain #42; Zofran ODT 4 mg p.o. q.4 hours #30 p.r.n. nausea. She is to resume home medications; Tylenol 650 every 6 hours p.r.n. pain, Celebrex 200 mg p.o. daily #14, diltiazem CD 120 mg oral, so she will be going home on no lisinopril, and HCTZ 12.5 mg daily. DIET: Step 2 gastric bypass diet with no cereal until 02/05/2019 and to drink 8 to 10 glasses of water a day. ACTIVITY: No lifting greater than 10 pounds for 2 weeks. Other activity: Walk at least 6 times daily inside your house. Driving; do not drive for 1 week and while on pain medication. Shower/bathing; may shower. Keep operative site clean and dry. Wear abdominal binder for 2 weeks and then as tolerated. Notify provider if any fever, increased pain, nausea, or vomiting. Use incentive spirometer 10 times every hour while awake for 1 week. Keep a record of protein and liquid intake and bring to clinic appointments.
--- NOTE | 2019-01-15 11:11 | OR ---
DATE OF PROCEDURE: 01/05/2019 SURGEON: Gaurav Ozuna MD PREOPERATIVE DIAGNOSIS: Morbid obesity. POSTOPERATIVE DIAGNOSES: 1. Morbid obesity. 2. Marked hepatomegaly. 3. 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 OPERATIVE PROCEDURES: 1. Diagnostic laparoscopy with: a. Laparoscopic sleeve gastrectomy (72025). b. Monty-Cut needle liver biopsy. 2. Limited laparotomy with stricturoplasty of transverse colon (15345). ANESTHESIA: General. INDICATION FOR PROCEDURE: A 68-year-old female presenting with longstanding morbid obesity and increasingly significant comorbidities. After preoperative evaluation and discussion, she wished to proceed with a sleeve gastrectomy. Potential risks including bleeding, infection, injury to underlying viscera, problems with leaks from the gastrectomy staple line, as well as possibility of cardiopulmonary, septic, or hemorrhagic complications leading to were discussed, and the patient wishes to proceed. The patient has a long right subcostal incision from previous open cholecystectomy. She is aware that adhesion in this area may complicate the procedure to some extent and make it somewhat higher likelihood that an open approach might need to be undertaken and wishes to proceed. DETAILS OF PROCEDURE: The patient was taken to the operating room and placed in a supine position. After general endotracheal anesthesia was induced, she was converted to a lithotomy position and the abdomen prepped and draped. At 15 cm inferior and 5 cm left of the xiphoid process, a transverse incision was made and the peritoneal cavity entered under direct vision with an Optiview trocar inflated to 15 mmHg pressure with CO2. Laparoscope was reinserted. No underlying trocar insertion site injuries were seen. At this point, the patient was noted to have broad area of adhesions between the omentum and transverse colon and the area of the right subcostal incision. Two left subcostal trocars were then placed, and at that point, fairly extensive adhesiolysis was undertaken. Once this was completed, there appeared to be an area of deserosalization of the transverse colon. This was initially treated by means of a transversely oriented linear stapler. This appeared to create somewhat in the way of narrowing of the bowel at that level, and at that point decision was made to complete the sleeve gastrectomy with a laparoscopic approach and then this would allow a much more limited laparotomy for stricturoplasty of the transverse colon. Three additional trocars were placed across the upper mid abdomen and attention then taken to formation of sleeve gastrectomy. The omentum along the greater curvature was divided with a Harmonic scalpel, and then this dissection continued proximally to include the highest and posterior short gastric vessels. The attachments of the fundus and the left franco of the diaphragm were then freed up with a combination of blunt and Harmonic scalpel dissection. The dissection then continued distally to a point 2 cm proximal to the pylorus with some general attachments between the posterior aspect of the stomach. The line from the initial staple lines was then marked out, beginning 2 cm proximal to the pylorus and extending underneath the incisura angularis with a distance enough to avoid kinking off of the stomach at that level. The first 3 firings of ROMA zachary were with ROMA black loads without reinforcement. Following this, a tube was then placed per Anesthesia and positioned along the lesser curvature of the stomach, from there in the antrum. This was a 32-Mohawk size tube, which was pulled up against the lesser curvature, where suction was applied. The remainder of the gastrectomy was accomplished with a combination of reinforced black and purple loads, and upon completion of the resection, the gastric specimen was placed downward and toward the left lower quadrant. The area of the sleeve gastrectomy was then inspected, and all staple lines appeared to be intact. The fibrin sealant was then placed along the length of the gastrectomy staple line, focusing on the area around the esophagogastric junction. The omentum was then tacked up along the entire length of the sleeve gastrectomy with series of 3-0 Vicryl sutures, and with injection of antibiotic containing saline solution in the area of the longest gastrectomy staple line and the pylorus being compressed, air was injected into the now decompressed tube within the stomach, distending the remaining stomach. No bleeding or leaks were evident. This tube was then removed, and a single Emmanuel-Winkler drain was then taken through the left lateral trocar site and positioned up against the area of the esophagogastric junction, from there into the splenic fossa. Trocars were then sequentially removed and the peritoneal cavity deflated. To more safely do the stricturoplasty, a portion of the right subcostal incision was then reused and carried down through the full-thickness abdominal wall. Upon entering the peritoneal cavity, there did appear to be some fixation of the transverse colon inferiorly, due to some adhesions in the lower abdomen and pelvis. These were taken down with a combination of blunt and cautery dissection. This then brought up the transverse colon, such that it could be flipped over on itself without any tension. A small enterotomy was placed in the antimesenteric border of the colon and initially a ROMA 60 mm esctoo load was placed with one arm in each of the bowel as it lay [id number], and following this additional 45 mm ROMA stapler was applied. The common opening was then closed with a ROMA purple load, and the angles of anastomosis were reinforced with some 3-0 Vicryl stitch. There was no mesenteric defect to close. This closure and anastomosis were also reinforced with some fibrin sealant. At that point, the abdomen was irrigated with meropenem- containing saline solution. Gastric specimen was retrieved through the primary incision at this point, and this incision was closed with 2 layers of fascial stitch, one in the posterior rectus sheath, one in the anterior rectus sheath, and the subcutaneous tissue was approximated with 2 layers of 3-0 and 4-0 Vicryl stitch deep and zachary for the skin. At the onset of the procedure, bilateral subcostal transversus abdominis plane blocks had been placed, and the primary incision was then also anesthetized with 1% lidocaine mixed with Marcaine. Dressing was applied. The patient was taken to the recovery room in satisfactory condition. There were no evident complications. Gaurav Ozuna MD /[id number]
== END 2019-01-09 15:00 | disposition home or self-care (01) | DRG 621 ==
LOC: EDSTATUS 07:15 → JP.SDSSCHI 09:25 → JP.SDS 09:25 → JP.MS 13:50
PROVIDERS: ADMIT Surgery; ATTEND Surgery
PROC: 0DB64Z3 Excision of Stomach, Percutaneous Endoscopic Approach, Vertical (ICD-10-PCS; 2019-01-05)
PROC: 0DBL4ZZ Excision of Transverse Colon, Percutaneous Endoscopic Approach (ICD-10-PCS; 2019-01-05)
PROC: 0DNU4ZZ Release Omentum, Percutaneous Endoscopic Approach (ICD-10-PCS; 2019-01-05)
PROC: 0DNL4ZZ Release Transverse Colon, Percutaneous Endoscopic Approach (ICD-10-PCS; 2019-01-05)
PROC: 0FB04ZX Excision of Liver, Percutaneous Endoscopic Approach, Diagnostic (ICD-10-PCS; 2019-01-05)
PROC: 5A09357 Assistance with Respiratory Ventilation, Less than 24 Consecutive Hours, Continuous Positive Airway Pressure (ICD-10-PCS; principal; 2019-01-07)
DX: E66.01 Morbid (severe) obesity due to excess calories (principal); Z68.43 Body mass index [BMI] 50.0-59.9, adult; R16.0 Hepatomegaly, not elsewhere classified; K66.0 Peritoneal adhesions (postprocedural) (postinfection); I48.0 Paroxysmal atrial fibrillation; G47.33 Obstructive sleep apnea (adult) (pediatric); E11.9 Type 2 diabetes mellitus without complications; I10 Essential (primary) hypertension; R31.9 Hematuria, unspecified; H52.13 Myopia, bilateral; Z87.442 Personal history of urinary calculi; Z91.09 Other allergy status, other than to drugs and biological substances; Z79.84 Long term (current) use of oral hypoglycemic drugs; Z90.49 Acquired absence of other specified parts of digestive tract; Z79.899 Other long term (current) drug therapy; Z90.710 Acquired absence of both cervix and uterus; Z87.891 Personal history of nicotine dependence
CPT/HCPCS: 36415; 74240; 80053; 82962; 83735; 83880; 84100; 85025; 86850; 86900; 86901; 88305; 88307; 88313; 88341; 88342; 90662; 93306; 94667; 94762; 97165-GO; A9270-GY; C9113; G0008; J0171; J0330; J0694; J1100; J1170; J1644; J1815-GY; J2001; J2185; J2405; J2704; J2710; J2795; J3010; J3410; J3411; J3420; J3490; J7030; J7042; J7050; J7120; Q9967

== ENCOUNTER 2022-04-02 08:05 | Day surgery (SDC) | payer MEDICARE ==
[2022-04-02] MEDS ORDERED: Dextrose 5%-Lactated Ringers 1,000 ML IV SCH (08:30)
[2022-04-02] MEDS ORDERED: Glycopyrrolate 0.2 MG/ML 2 ML SDV IVPUSH ONE ×2 (09:00→09:30)
[2022-04-02] MEDS ORDERED: fentaNYL 50 MCG/ML SDV ONE (09:58)
[2022-04-02] MEDS ORDERED: Propofol 200 MG/20 ML SDV ONE (09:58)
[2022-04-08 14:09] LABS: COLOR Tan (.); SIZE <1 mm (.); SOURCE Kidney (.); WEIGHT <1 mg (.)
== END 2022-04-02 13:23 | disposition home or self-care (01) ==
LOC: JP.SDS 08:05
PROVIDERS: ATTEND Surgery
DX: K21.9 Gastro-esophageal reflux disease without esophagitis (principal); K25.9 Gastric ulcer, unspecified as acute or chronic, without hemorrhage or perforation; K44.9 Diaphragmatic hernia without obstruction or gangrene; I10 Essential (primary) hypertension; G47.33 Obstructive sleep apnea (adult) (pediatric); E11.9 Type 2 diabetes mellitus without complications; E66.9 Obesity, unspecified; Z68.42 Body mass index [BMI] 45.0-49.9, adult; Z98.84 Bariatric surgery status; Z91.048 Other nonmedicinal substance allergy status; Z79.899 Other long term (current) drug therapy
CPT/HCPCS: 82365; 87081; 88305; J2704; J3010; J3490; J7121

== ENCOUNTER 2022-05-09 09:32 | Inpatient (IN) | payer MEDICARE ==
[~2022-05-09 09:32] MED LIST changes: +Acetaminophen 500 MG Tab PO ONE; +Celecoxib 200 MG Cap PO ONE; +Ketamine 16 MG in Sodium Chloride 0.9% 19.84 ML IV SCH; +Ketamine 500 MG/5 ML MDV IV SCH; +Scopolamine 1.5 MG Transdermal Patch TOP SCH
[2022-05-09 10:12] LABS: HEMOGLOBIN A1C 5.6 % (4.5-6.2)
[2022-05-09] MEDS ORDERED: Dextrose 5%-Lactated Ringers 1,000 ML IV SCH (10:30)
[2022-05-09] MEDS ORDERED: fentaNYL 250 MCG/5 ML SDV ONE ×2 (10:33→14:41)
[2022-05-09] MEDS ORDERED: Neostigmine Methylsulfate 1 MG/ML 5 ML Syringe ONE (10:34)
[2022-05-09] MEDS ORDERED: Propofol 200 MG/20 ML SDV ONE ×3 (10:34→11:38)
[2022-05-09] MEDS ORDERED: Ondansetron 4 MG/2 ML SDV ONE (10:34)
[2022-05-09] MEDS ORDERED: Glycopyrrolate 0.2 MG/ML 5 ML MDV ONE (10:34)
[2022-05-09] MEDS ORDERED: Rocuronium 50 MG/5 ML Vial ONE ×2 (10:34→14:33)
[2022-05-09] MEDS ORDERED: Succinylcholine 200 MG/10 ML MDV ONE (10:34)
[2022-05-09] MEDS ORDERED: Dexamethasone 4 MG/ML SDV ONE (10:34)
[2022-05-09] MEDS ORDERED: cefOXitin 2 GM in Sodium Chloride 0.9% 50 ML IV ONE (11:00)
[2022-05-09] MEDS ORDERED: Ketorolac 30 MG/ML SDV ONE (11:26)
[2022-05-09] MEDS ORDERED: Lactated Ringers 1,000 ML ONE (14:19)
[2022-05-09] MEDS ORDERED: Sugammadex Sodium 200 MG/2 ML VIAL ONE (15:37)
[2022-05-09] MEDS ORDERED: hydrOXYzine HCl 50 MG/ML SDV IM ONE (15:47)
[2022-05-09] MEDS ORDERED: Cyclobenzaprine 10 MG Tab PO PRN (16:50)
[2022-05-09] MEDS ORDERED: Labetalol 20 MG/4 ML Syringe IVPUSH PRN (17:00)
[2022-05-09] MEDS ORDERED: Metoclopramide 10 MG/2 ML SDV IVPUSH PRN (17:00)
[2022-05-09] MEDS ORDERED: HYDROmorphone 1 MG/ML Syringe IV PRN (17:00)
[2022-05-09] MEDS ORDERED: Acetaminophen 500 MG Tab PO PRN (17:00)
[2022-05-09] MEDS ORDERED: diphenhydrAMINE 50 MG/ML SDV IVPUSH PRN (17:00)
[2022-05-09] MEDS ORDERED: Ondansetron 4 MG/2 ML SDV IVPUSH PRN (17:00)
[2022-05-09] MEDS ORDERED: HYDROmorphone 0.5 MG/0.5 ML Syringe IVPUSH PRN (17:00)
[2022-05-09] MEDS ORDERED: MVI, Adult with Vitamin K 10 ML, Thiamine 200 MG, Zinc/Copper/Manganese/Selenium 1 ML i... IV SCH ×4 (18:00)
[2022-05-09] MEDS: cefOXitin 2 GM in Sodium Chloride 0.9% 50 ML IV SCH (18:19)
[2022-05-09] MEDS: Pantoprazole 40 MG Vial IVPUSH SCH (18:22)
[2022-05-09] MEDS ORDERED: hydrOXYzine HCl 50 MG/ML SDV IM PRN (20:00)
[2022-05-09] MEDS: oxyCODONE 5 MG Tab PO PRN (20:04)
[2022-05-09] MEDS: Acetaminophen 500 MG Tab PO SCH (21:19)
[2022-05-09] MEDS: Heparin Sodium 5,000 Units/ML Vial SUBCUT SCH (21:19)
[2022-05-10] MEDS: cefOXitin 2 GM in Sodium Chloride 0.9% 50 ML IV SCH ×3 (00:10→12:06)
[2022-05-10] MEDS: Dextrose 5%-Lactated Ringers 1,000 ML IV SCH ×2 (00:33→07:34)
[2022-05-10] MEDS: oxyCODONE 5 MG Tab PO PRN ×2 (03:48→17:02)
[2022-05-10] MEDS ORDERED: Iopamidol 612 MG/ML 30 ML SDV PO STA (03:50)
[2022-05-10] MEDS: Acetaminophen 500 MG Tab PO SCH ×3 (05:39→21:36)
[2022-05-10] MEDS ORDERED: hydrOXYzine HCl 25 MG Tab PO PRN (07:52)
[2022-05-10] MEDS ORDERED: Ondansetron 4 MG Tab.DIS PO PRN (07:52)
[2022-05-10] MEDS ORDERED: Dextrose 5%-Lactated Ringers 1,000 ML IV SCH (08:00)
[2022-05-10] MEDS: Celecoxib 200 MG Cap PO SCH ×2 (08:55→21:36)
[2022-05-10] MEDS: SCOPOLAMINE PATCH CHECK TOP SCH (08:55)
[2022-05-10] MEDS: Heparin Sodium 5,000 Units/ML Vial SUBCUT SCH ×2 (08:58→19:55)
[2022-05-10] MEDS: traMADol 50 MG Tab PO PRN ×2 (12:09→21:40)
[2022-05-10] MEDS ORDERED: MVI, Adult with Vitamin K 10 ML, Thiamine 200 MG, Zinc/Copper/Manganese/Selenium 1 ML i... IV SCH ×4 (16:00)
[2022-05-10] MEDS: Pantoprazole 40 MG Vial IVPUSH SCH (17:19)
[2022-05-11] MEDS: Acetaminophen 500 MG Tab PO SCH (05:55)
[2022-05-11] MEDS: oxyCODONE 5 MG Tab PO PRN (07:40)
[2022-05-11] MEDS: Celecoxib 200 MG Cap PO SCH (08:57)
[2022-05-11] MEDS ORDERED: Cyanocobalamin (Vitamin B12) 1,000 MCG/ML SDV IM ONE (09:00)
[2022-05-11] MEDS ORDERED: Magnesium Hydroxide 400 MG/5 ML Susp 30 ML Cup PO PRN (09:56)
[2022-05-11] MEDS: SCOPOLAMINE PATCH CHECK TOP SCH (10:11)
[2022-05-11] MEDS: Heparin Sodium 5,000 Units/ML Vial SUBCUT SCH (11:36)
== END 2022-05-11 12:00 | disposition home or self-care (01) | DRG 621 ==
LOC: JP.SDSSCHI 09:32 → JP.MS 16:35
PROVIDERS: ADMIT Surgery; ATTEND Surgery
PROC: 0D164ZA Bypass Stomach to Jejunum, Percutaneous Endoscopic Approach (ICD-10-PCS; principal; 2022-05-09)
PROC: 0BQT4ZZ Repair Diaphragm, Percutaneous Endoscopic Approach (ICD-10-PCS; 2022-05-09)
PROC: 0FB24ZX Excision of Left Lobe Liver, Percutaneous Endoscopic Approach, Diagnostic (ICD-10-PCS; 2022-05-09)
DX: E66.01 Morbid (severe) obesity due to excess calories (principal); K44.9 Diaphragmatic hernia without obstruction or gangrene; R16.0 Hepatomegaly, not elsewhere classified; G47.33 Obstructive sleep apnea (adult) (pediatric); I10 Essential (primary) hypertension; K21.9 Gastro-esophageal reflux disease without esophagitis; Z90.49 Acquired absence of other specified parts of digestive tract; Z90.710 Acquired absence of both cervix and uterus; Z79.82 Long term (current) use of aspirin; Z79.899 Other long term (current) drug therapy; Z87.891 Personal history of nicotine dependence; Z68.43 Body mass index [BMI] 50.0-59.9, adult
CPT/HCPCS: 36415; 74240; 74240-26; 82947; 83036; 83735; 83880; 84100; 86850; 86900; 86901; A9270-GY; C9113; J0131; J0171; J0330; J0694; J1100; J1170; J1644; J1885; J2405; J2704; J2710; J2795; J3010; J3410; J3411; J3420; J3490; J7120; J7121; Q9967